=== PATIENT | female | born 1980 | race Caucasian/White ===

== ENCOUNTER 2019-03-02 09:58 | Emergency (ER) | payer SELFPAY ==
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
[2019-03-02] MEDS: KETOROLAC TROMETHAMINE INJ 30 MG/ML VIAL IM ONE (11:05)
[2019-03-02] MEDS: ORPHENADRINE CITRATE 30 MG/ML AMP IM ONE (11:06)
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
[2019-03-02 12:00] VITALS: BP 102/62; TEMP 98.8; O2SAT 98
== END 2019-03-02 11:59 | disposition home or self-care (01) ==
LOC: ER 09:58
DX: R10.10 Upper abdominal pain, unspecified (principal); R07.81 Pleurodynia; K80.20 Calculus of gallbladder without cholecystitis without obstruction; V49.49XA Driver injured in collision with other motor vehicles in traffic accident, initial encounter; Y92.410 Unspecified street and highway as the place of occurrence of the external cause
CPT/HCPCS: 71101; 74176; J1885; J2360